=== PATIENT | female | born 1945 | race Caucasian/White ===

== ENCOUNTER 2016-08-17 10:29 | Outpatient (RCR) | payer MEDICARE, OTHER ==
--- NOTE | 2016-07-16 10:57 | PT/OT/ST INITIAL EVALUATION ---
Department of Health and Human Services Form Approved [facility] Financing Administration OMB No. [id number] PLAN OF CARE/ASSESSMENT FOR OUTPATIENT REHABILITATION (Complete for Initial Claims Only) 1. PATIENT'S NAME Izzy Neville 2. ACC # [id number] [facility]. [facility] [id number] 4. PROVIDER NO. [id number] 5. TYPE: PT 6. PRIOR HOSPITALIZATION NA 7. PRIMARY DX L TKA 8. SECONDARY DX Decreased functional mobility, ROM, and strength. 9. ONSET DATE 07/02/2016 10. REFERRAL DATE 07/04/2016 11. SOC. DATE 07/06/2016 12. TIME OF EVAL 10:10 12. REFERRING PHYSICIAN Roger Scott MD 13. CHARGES/UNITS NA 14. G CODES [id number] 15. PRIOR LEVEL OF FUNCTION; PERTINENT HISTORY (Prior therapy results, reason for referral.) S: Prior to therapy the patient did consent to today's evaluation and treatment. The patient is a 70-year-old female referred to physical therapy by Dr. Roger Scott to address left total knee arthroplasty. Personal health rating: The patient rates overall and general health as excellent today. Primary Complaint: Pain, decreased range of motion, and ambulation difficulty. Prior level of function: Prior level of function was good. The patient reports no restricted range of motion or pain prior to procedure and was able to complete all functional activities and ADL's. Current level of function: Fair. The patient is currently ambulating with a 4-wheeled walker and bilateral upper extremity support. The patient is ambulating with a mild antalgic gait and decreased yu. The patient is able to enter and exit home with 4-wheeled walker. The patient reports having 2 stairs to exit the house to the garage and two stairs to exit the house in the front. The patient is using a bath stool to help shower and complete self-care at this time. Pain level: Max pain level not reported at this time. Current pain level 3/10. Relieving factors: The patient reports using ice intermittently and medications to control pain. Past medical history: Includes arthritis, bone fracture, depression and thyroid problems. The patient has also had a tonsillectomy and carpal tunnel surgery. Current medications: Tramadol, Tylenol and aspirin. The patient reports also taking Prozac, thyroid medications, Lipitor and Omeprazole. Patient's Goal: Walking without a 4-wheeled walker, getting back to cruising with her , and performing household activities without pain. 16. INITIAL ASSESSMENT/SAFETY PRECAUTIONS/MEDICAL COMPLICATIONS (Level of function at start of care. Be specific, use objective measures, list problems.) O: APPEARANCE, OBSERVATION AND GAIT: The patient ambulates with a 4-wheeled walker and bilateral upper extremity support, decreased yu, reciprocal pattern, and wide base of support. Upon observation of left knee, the patient has mild bruising around the medial knee and knee appears edematous. PALPATION: Left knee is warmer than right. Also the patient has increased edema in left knee. SPECIAL TESTS: Circumferential measurements were taken at 10 cm above joint line, at joint line, and 10 cm below. Edema measurements: at 10 cm above joint line, left knee 53 cm, right knee 47 cm. At joint line left knee 45 cm, right knee 39.5 cm. 10 cm below joint line, left knee 39.5 cm and right knee 36.0 cm. RANGE OF MOTION/FLEXIBILITY: Knee flexion right 132 degrees, left 105 degrees. Knee extension right 0 degrees and left -5 degrees. STRENGTH: Hip flexion right 4/5, left 4-/5. Hip extension right 4+/5 and left 4/5. Knee extension right 4+/5, left 4/5. Knee flexion right 4+/5, left 4/5. Hip abduction right 3+/5, left 3+/5. TODAY'S TREATMENT: Today's treatment consisted of patient education about physical therapy treatments and plan of care, home exercise program, initiation of light therapeutic exercise, active assist range of motion, and the use of a vasopneumatic device with cold and compression. 17. INITIAL POC: (Specify procedures, modalities, short and parts counterman goals) A: Upon completion of today's physical therapy examination the patient's prognosis is good for return to prior level of function, pending adherence to home exercise program and good attendance in therapy. PROGNOSIS: Skilled physical therapy services needed for increased strengthening, range of motion, gait training and pain relieving techniques in order to return to prior level of function. OUTCOME ASSESSMENT: The patient completed the Lower Extremity Functional Index today with a score of 29/80. INFORMED CONSENT: The diagnosis, prognosis, treatment plan, risks and expected outcomes were discussed with the patient. The patient did agree to today's established plan of care. SHORT TERM GOALS: 1. The patient is compliant and independent with home exercise program in 1 week to promote progress in therapy. 2. In 4 weeks the patient's bilateral hip abduction will increase in strength from 3+/5 to 4+/5 in order to promote normal gait without an assistive device. 3. In 4 weeks, the patient's left range of motion will improve from 105 degrees of flexion to 130 degrees of flexion in order to promote a safe gait pattern with stairs. 4. In 6 weeks, the patient will report an improvement in the Lower Extremity Functional Index from 29/80 to 50/80 in order to return to normal activity in the home and community. P: Physical therapy treatment will include strengthening, range of motion, scar mobilization and gait training in order to address patient goals, strength limitations, range of motion restrictions and gait deviations. Treatment to include modalities as appropriate, manual therapies for pain and ROM deficits, therapeutic exercise, active range of motion, and passive range of motion, gait training, balance and proprioceptive training, neural reeducation, and patient education with a home exercise program. Thank you for the referral of this patient today 18. FREQUENCY 19. DURATION 6 weeks 20. FUNCTIONAL LEVEL (End of claim period) 21. PHYSICIAN SIGNATURE ? ON FILE OR ENTER HERE: 22. DATE: I certify the need for these services furnished under this plan of care and if for partial hospitalization. 23. CERTIFICATION FROM THROUGH FORM [id number]
== END 2016-08-27 12:02 | disposition home or self-care (01) ==
LOC: PT 10:29
PROVIDERS: ATTEND Orthopaedic Surgery
DX: Z47.1 Aftercare following joint replacement surgery (principal); Z96.652 Presence of left artificial knee joint
CPT/HCPCS: 97016; 97110; 97112; 97140; 97161; G8978; G8979; G8980